=== PATIENT | male | born 1965 | race Caucasian/White ===

== ENCOUNTER 2019-08-28 15:55 | Emergency (ER) | payer OTHER, SELFPAY ==
[2019-08-28 15:55] VITALS: BP 139/95; PULSE 85; RESP 18; TEMP 36.4; O2SAT 95; BMI 29.9
--- NOTE | 2019-08-28 16:46 | ED.VIS.GEN ---
History of Present Illness Chief Complaint: Edema Detail of Chief Complaint: Patient sent from urgent care to evaluate for DVT Informant: Patient Onset: Days - Onset of pain 3 days ago. Context: Sudden Onset Timing: Intermittent - Okay Quality: Pain posterior distal left leg Location: Distal portion of calcaneus and Achilles tendon Current Severity: - - No pain presently Maximum Severity: Moderate Worsened by: Forced dorsi flexion Relieved by: Rest Associated Symptoms: No associated symptoms Narrative: This 53-year-old male who presents with pain that he localizes distal portion of the calcaneus and Achilles tendon. This pain is precipitated with forced dorsiflexion or walking for prolonged period time. He has no history of VTE. He has no risk factors. There is no family history. He denies cardiac or respiratory symptoms. He has anaphylactic reaction to aspirin and NSAIDs. Prior similar symptoms: No Recent Illness/Hospitalization: No - Past Medical History (1) No significant past medical history Status: Acute Past Medical History - Allergies and Home Meds Allergies/Adverse Reactions: Allergies aspirin Allergy (Verified 08/28/19 15:57) Anaphylaxis Primary Care Physician: Dakota Masterson MD [Primary Care Provider] - Prior records reviewed: No Past Medical History: None Surgical History: noncontributory Lives: Spouse/ Significant Other Smoking Status: Never smoker Drugs: None Review of Systems General: Denies: Chills, Fever, Malaise, Sweats Respiratory: Denies: Dyspnea, Cough, Dyspnea on exertion Gastrointestinal: Denies: Nausea, Vomiting Musculoskeletal: Reports: Extremity Pain. Denies: Myalgias, Arthralgias, Neck pain, Back pain, Swelling, -, - Neurological: Denies: Weakness, Parasthesia, Numbness Hematologic: Denies: Easy bruising, Easy bleeding Allergy: Denies: Uticaria Physical Exam Vital Signs/Narrative: Vital Signs Temp Pulse Resp BP Pulse Ox 08/28/19 15:55 97.6 F L 85 18 139/95 H 95 Inital Vital Signs reviewed: Yes General: Well nourished, Well developed, No Acute Distress Head: Normocephalic, Atraumatic Eyes: Perrl, EOMI. Negative for: Pale conjunctiva, Scleral icterus Cardiovascular: Regular rate, Regular rhythm, No murmurs Respiratory: No distress Extremities: No edema, Tenderness - Tenderness with forced dorsiflexion and palpation over the Achilles tendon. There is no disruption. There is no asymmetry, swelling, discoloration, leg vein distention, palpable cords or tenderness along the distribution of the deep venous system.. Negative for: Nontender Skin: Normal color, No rash, No Trauma. Negative for: Cyanosis, Diaphoresis, Jaundice Neurological: Alert, Oriented x3, Cranial nerves II-XII grossly intact, Normal Strength, Normal Sensation Psychological: Normal affect, Normal Mood Diagnostic/Tx/Re-eval - Medical Decision Making [place] with left lower extremity pain posteriorly. Differential diagnosis includes tendinitis, muscle strain, DVT. Well score is -2. Patient was treated with prednisone and referred to podiatry not treated with NSAIDs because of anaphylactic reaction. ED Disposition - Plan for ED Patient: Disposition: Home or Assisted Living Diagnosis: Achilles tendinitis of left lower extremity Instructions: What Is Tendinitis of the Foot? Prescriptions: Prednisone [Deltasone] 40 mg PO DAILY #10 tab Transmission Status: Pending to [facility]/pharmacy #[id number] Referrals: Dakota Masterson MD [Primary Care Provider] - As Needed Oswaldo Dee DPM [STAFF PHYSICIAN] - 1 Week if not improving
== END 2019-08-28 17:17 | disposition home or self-care (01) ==
LOC: ED 17:16
PROVIDERS: Emergency Provider Emergency Medicine; PCP Internal Medicine
DX: M76.62 Achilles tendinitis, left leg (principal)
CPT/HCPCS: 99283